=== PATIENT | female | born 1960 | race Two or more races ===

== ENCOUNTER 2021-06-16 17:13 | Emergency (ER) | payer OTHER ==
[~2021-06-16] VITALS: Ht 152.4 cm; Wt 77.6 kg
[2021-06-16] MEDS ORDERED: GLUMETZA1000 MG PO (17:47)
[2021-06-16] MEDS ORDERED: LIPITOR40 M1 PO (17:47)
[2021-06-16] MEDS ORDERED: GLIPIZIDE XL2.5 MG PO (17:47)
== END 2021-06-16 22:15 | disposition home or self-care (01) ==
LOC: ER 17:13
DX: E03.9 Hypothyroidism, unspecified (principal); E11.9 Type 2 diabetes mellitus without complications; I10 Essential (primary) hypertension